=== PATIENT | female | born 2000 | race Caucasian/White ===

== ENCOUNTER 2018-03-05 12:29 | Emergency (ER) | payer OTHER ==
[~2018-03-05] VITALS: Ht 149.9 cm; Wt 50.0 kg
[2018-03-05 12:38] VITALS: BP 125/80; PULSE 98; RESP 18; TEMP 98; O2SAT 100
--- NOTE | 2018-03-05 12:59 | PD ---
HPI Chief Complaint: Flank/Kidney Pain Time Seen by Provider: 12:49 Travel History International Travel<30 days: No Contact w/Intl Traveler<30days: No Traveled to known affect area: No History of Present Illness HPI The patient is a 18-year-old female who presents to the emergency department for dysuria. The patient notes a 2-3 day history of dysuria, frequency, and urgency. She now complains of right flank pain with increasing symptoms. She does have a history of UTI with similar symptoms. She denies any vaginal discharge currently, does states she had some clear, white, thin, normal vaginal discharge several days ago which resolved. The patient's last menstrual cycle was February 13, 2018. She is sexually active, is unsure about current . She denies any fever, chills, or sweats. She does complain of mild suprapubic tenderness. She denies any nausea, vomiting, or upper abdominal pain. PFSH Past Medical History Narrative Medical Denies Medical History: Denies Significant Hx ?: Not Past Surgical History Surgical History: No Previous Surgery Social History Tobacco Use: No Allergies-Medications (Allergen,Severity, Reaction): Coded Allergies: Sulfa (Sulfonamide Antibiotics) (Verified Allergy, Intermediate, Hives, 03/05/18) Reported Meds & Prescriptions Reported Meds & Active Scripts Active No Active Prescriptions or Reported Medications Review of Systems Except as stated in HPI: all other systems reviewed are Neg General / Constitutional: No: Fever Gastrointestinal: No: Nausea, Vomiting, Diarrhea, Abdominal Pain Genitourinary: Positive: Urgency, Frequency, Dysuria, Pelvic Pain (Suprapubic tenderness radiating to right flank), No: Hematuria, Discharge, Vaginal Bleeding Skin: No Rash, No Itching Physical Exam Narrative GENERAL: Awake, alert, nontoxic-appearing 18-year-old female who appears her stated age and is in no acute respiratory distress. SKIN: Focused skin assessment warm/dry. HEAD: Atraumatic. Normocephalic. EYES: No injection or drainage. GASTROINTESTINAL: Abdomen soft, mild suprapubic tenderness. Back: No CVA tenderness. MUSCULOSKELETAL: No obvious deformities. No clubbing. No cyanosis. No edema. NEUROLOGICAL: Awake and alert. No obvious cranial nerve deficits. Motor grossly within normal limits. Normal speech. PSYCHIATRIC: Appropriate mood and affect; insight and judgment normal. Data Data Last Documented VS Vital Signs Date Time Temp Pulse Resp B/P (MAP) Pulse Ox O2 Delivery O2 Flow Rate FiO2 03/05/18 12:38 98.0 98 18 125/80 (95) 100 Orders Orders Urinalysis - C+S If Indicated (03/05/18 12:40) Ed Urine Pregnancytest Poc (03/05/18 12:55) Urine Culture (03/05/18 12:42) Labs Laboratory Tests Test 03/05/18 12:42 Urine Color YELLOW Urine Turbidity HAZY Urine pH 6.0 Urine Specific [place] 1.016 Urine Protein TRACE mg/dL Urine Glucose (UA) NEG mg/dL Urine Ketones NEG mg/dL Urine Occult Blood NEG Urine Nitrite NEG Urine Bilirubin NEG Urine Urobilinogen LESS THAN 2.0 MG/DL Urine Leukocyte Esterase LARGE Urine RBC 4 /hpf Urine WBC /hpf Urine WBC Clumps RARE Urine Squamous Epithelial Cells 8 /hpf Urine Bacteria RARE /hpf Urine Mucus FEW /lpf Microscopic Urinalysis Comment CULTURE INDICATED MDM Medical Decision Making Medical Screen Exam Complete: Yes Emergency Medical Condition: Yes Medical Record Reviewed: Yes Interpretation(s) Laboratory Tests Test 03/05/18 12:42 Urine Color YELLOW Urine Turbidity HAZY Urine pH 6.0 Urine Specific [place] 1.016 Urine Protein TRACE mg/dL Urine Glucose (UA) NEG mg/dL Urine Ketones NEG mg/dL Urine Occult Blood NEG Urine Nitrite NEG Urine Bilirubin NEG Urine Urobilinogen LESS THAN 2.0 MG/DL Urine Leukocyte Esterase LARGE Urine RBC 4 /hpf Urine WBC /hpf Urine WBC Clumps RARE Urine Squamous Epithelial Cells 8 /hpf Urine Bacteria RARE /hpf Urine Mucus FEW /lpf Microscopic Urinalysis Comment CULTURE INDICATED Differential Diagnosis Differential diagnosis includes UTI, pyelonephritis, cervicitis, vaginitis, PID , nephrolithiasis, , ectopic . Narrative Course A UA was sent to lab. Bedside UA test was obtained. Bedside UA test is negative. The patient is allergic to Bactrim, therefore, will be placed on Cipro. The patient was administered her first dose of Cipro in the emergency department. Diagnosis Primary Impression: Pyelonephritis Patient Instructions: General Instructions Additional Instructions: Medication as directed. Please provide the patient a copy of her urine results at discharge. Plenty of fluids to stay hydrated. Follow-up with your primary physician. Return if symptoms worsen or progress. Med/Other Pt SpecificInfo: Prescription(s) given Scripts Ciprofloxacin (Cipro) 500 Mg Tab 500 MG PO BID for Infection for 7 Days, #14 TAB 0 Refills Prov: Tristen Wilson MD 03/05/18 Disposition: 01 DISCHARGE HOME Condition: Stable rTisten Wilson MD March 05, 2018 12:59
[2018-03-05 13:17] LABS: BACTERIA, URINE RARE /hpf; BILIRUBIN, URINE NEG (NEG); BLOOD, URINE NEG (NEG); GLUCOSE,URINE NEG (NEG); KETONE, URINE NEG (NEG); MUCUS URINE FEW /lpf (OCC); NITRITE,URINE NEG (NEG); SQUAMOUS EPITHELIAL CELL URINE 8 /hpf (0-5); URINE COLOR YELLOW (YELLW/STRAW); URINE LEUKOCYTE ESTERASE LARGE (NEG); WHITE BLOOD CELL CLUMPS RARE
[2018-03-05] MEDS ORDERED: CIPR-9 PO (13:35)
[2018-03-05] MEDS ORDERED: CIPROFLOXACIN 500 MG TAB PO ONE (13:45)
== END 2018-03-05 14:18 | disposition home or self-care (01) ==
LOC: NEPD 12:29
DX: N12 Tubulo-interstitial nephritis, not specified as acute or chronic (principal)
CPT/HCPCS: 81001; 84703; 87086; 99283

== ENCOUNTER 2018-04-03 12:56 | Emergency (ER) | payer OTHER ==
[~2018-04-03] VITALS: Ht 149.9 cm; Wt 48.5 kg
[~2018-04-03 12:56] MED LIST: CIPR-9 PO
[2018-04-03 13:06] VITALS: BP 123/61; PULSE 91; RESP 16; TEMP 99; O2SAT 99
[2018-04-03 17:39] LABS: BACTERIA, URINE RARE /hpf; BILIRUBIN, URINE NEG (NEG); BLOOD, URINE NEG (NEG); GLUCOSE,URINE NEG (NEG); KETONE, URINE NEG (NEG); NITRITE,URINE NEG (NEG); PH, URINE 6.5 (5.0-8.5); SQUAMOUS EPITHELIAL CELL URINE 2 /hpf (0-5); URINE COLOR YELLOW (YELLW/STRAW); URINE LEUKOCYTE ESTERASE TRACE (NEG)
[2018-04-03] MEDS ORDERED: MAGICADU2 SWISH-SWAL (18:43)
[2018-04-03] MEDS ORDERED: AMOX500C PO (18:43)
--- NOTE | 2018-04-03 18:43 | PD ---
HPI Chief Complaint: Cold / Flu Symptoms Time Seen by Provider: 18:29 Travel History International Travel<30 days: No Contact w/Intl Traveler<30days: No Traveled to known affect area: No History of Present Illness HPI 18-year-old female presented to the ED for evaluation of "a few days" sore throat, difficulty swallowing. Pain is rated 5/10, worsened by swallowing or eating. She endorses nonproductive cough and occasional sneezing. Endorses history of seasonal allergies. Patient denies fever, chills, sinus congestion, rhinorrhea, nausea, vomiting, abdominal pain, dysuria. No treatment attempted at home. [facility] Past Medical History Medical History: Denies Significant Hx Diminished Hearing: No ?: Unknown LMP: March 15, 2018 Past Surgical History Surgical History: No Previous Surgery Social History Alcohol Use: No Tobacco Use: No Substance Use: No Allergies-Medications (Allergen,Severity, Reaction): Coded Allergies: Sulfa (Sulfonamide Antibiotics) (Verified Allergy, Intermediate, Hives, ) Reported Meds & Prescriptions Reported Meds & Active Scripts Active Review of Systems Except as stated in HPI: all other systems reviewed are Neg Physical Exam Narrative GENERAL: Well-nourished, well-developed female no acute distress. SKIN: Warm and dry. Multiple well-healed facial piercings noted. No signs of infection. HEAD: Normocephalic. Atraumatic. EYES: No scleral icterus. No injection or drainage. PERRLA. EOMI. ENT: Pearly john tympanic membranes bilaterally. Nasal mucosa is moist. Oropharynx with moderate posterior erythema. Tonsils 2+ bilaterally with scattered exudates. No edema. Uvula midline. Airway patent. NECK: Supple, trachea midline. No JVD. Positive tender submandibular lymphadenopathy. CARDIOVASCULAR: Regular rate and rhythm without murmurs, gallops, or rubs. RESPIRATORY: Breath sounds clear and equal bilaterally. No accessory muscle use. GASTROINTESTINAL: Abdomen soft, non-tender, nondistended. + Bowel sounds MUSCULOSKELETAL: No cyanosis, or edema. BACK: Nontender without obvious deformity. No CVA tenderness. Data Data Last Documented VS Vital Signs Date Time Temp Pulse Resp B/P (MAP) Pulse Ox O2 Delivery O2 Flow Rate FiO2 04/03/18 13:06 99.0 91 16 123/61 (81) 99 Orders Orders Urinalysis - C+S If Indicated (04/03/18 17:04) Ed Urine Pregnancytest Poc (04/03/18 17:04) Group A Rapid Strep Screen (04/03/18 18:35) Labs Laboratory Tests Test 04/03/18 17:15 Urine Color YELLOW Urine Turbidity CLEAR Urine pH 6.5 Urine Specific [place] 1.013 Urine Protein NEG mg/dL Urine Glucose (UA) NEG mg/dL Urine Ketones NEG mg/dL Urine Occult Blood NEG Urine Nitrite NEG Urine Bilirubin NEG Urine Urobilinogen LESS THAN 2.0 MG/DL Urine Leukocyte Esterase TRACE Urine RBC LESS THAN 1 /hpf Urine WBC LESS THAN 1 /hpf Urine Squamous Epithelial Cells 2 /hpf Urine Bacteria RARE /hpf Microscopic Urinalysis Comment CULT NOT INDICATED MDM Medical Decision Making Medical Screen Exam Complete: Yes Emergency Medical Condition: Yes Differential Diagnosis Pharyngitis versus strep pharyngitis versus less likely peritonsillar abscess versus other Narrative Course 18-year-old female presents the ED for evaluation of "a few days history" sore throat. Patient is afebrile on presentation. Physical exam consistent with strep pharyngitis. No evidence of peritonsillar abscess. She is prescribed amoxicillin 500 mg twice daily 10 days. She is prescribed a short course of Magic mouthwash. She is encouraged to use OTC pain medications as directed on the label, follow with the ENT. We discussed reasons to return to the ED. Patient and mother indicated understanding of instructions and are agreeable to care plan. The patient is stable and discharged home. Diagnosis Primary Impression: Pharyngitis Qualified Codes: J02.9 - Acute pharyngitis, unspecified Referrals: Ear / Nose / Throat Specialist Additional Instructions: Rest, hydrate. Begin antibiotics today and take them until every dose of medication is gone. Magic mouthwash gargle and spit a few times a day to reduce pain. OTC pain medications such as Tylenol and Motrin as directed on the label, as needed for pain. Follow-up with gear tooth grinding machine operator. Return to the ED for worsening symptoms or any urgent or emergent medical condition. Med/Other Pt SpecificInfo: Prescription(s) given Disposition: DISCHARGE HOME Condition: Stable Isabelle Collier April 03, 2018 18:43
== END 2018-04-03 19:19 | disposition home or self-care (01) ==
LOC: NEPA 12:56
DX: J02.9 Acute pharyngitis, unspecified (principal)
CPT/HCPCS: 81001; 84703; 87081; 87880; 99283